=== PATIENT | male | born 1995 | race African-American/Black ===

== ENCOUNTER 2017-03-22 19:07 | Emergency (ER) | payer OTHER ==
[~2017-03-22] VITALS: Ht 185.4 cm; Wt 81.2 kg
--- NOTE | ~2017-03-22 | CR142 ---
[facility] A Service of [facility] & [facility] RADIOLOGY TEXT RESULTS PATIENT: STEPHANIE LOZANO LOCATION: [facility]FT[facility] : [birth year] UNIT #: [id number] AGE: [address]: Annelise Delgado APRN SEX: M ORDER DR: [id number] [facility] [address] [place], [place] [address] [id number] E MR#: [id number] Acc #: [id number] NAME: STEPHANIE LOZANO : 1995 SEX: M STUDY DATE/TIME: 03/22/2017 19:40 UNIT: [facility] ROOM: STUDY DESCRIPTION: CR Hand Min 3 Views Rt Attending Physician: Annelise Delgado A.P.R.N. Ordering Physician: Annelise Delgado A.P.R.N. Primary Care Physician: Primary Care Physician No MEDICAL IMAGING REPORT This report is preliminary unless electronic signature is present EXAM Right hand 3 views, 03/22/2017 HISTORY Right hand pain for 2 months after punching a car window. FINDINGS AP, lateral, and oblique projections of the hand show good mineralization with normal carpal, metacarpal, and phalangeal anatomy without indication of fracture, dislocation, or soft tissue radiopaque foreign body. IMPRESSION Normal hand. Dictated by... Arturo Nielson M.D. THIS IS AN ELECTRONICALLY VERIFIED REPORT Arturo Nielson M.D. at 03/23/2017 2:14 PM KRT/nargis TD: 03/23/2017 00:48 JOB #: [id number] MEDICAL IMAGING REPORT Page 1 of 1 COPY
--- NOTE | ~2017-03-22 | CR172 ---
[facility] A Service of [facility] & [facility] RADIOLOGY TEXT RESULTS PATIENT: STEPHANIE LOZANO LOCATION: [facility]FT[facility] : [birth year] UNIT #: [id number] AGE: [address]: Annelise Delgado APRN SEX: M ORDER DR: [id number] [facility] [address] [place], [place] [address] [id number] E MR#: [id number] Acc #: [id number] NAME: STEPHANIE LOZANO : 1995 SEX: M STUDY DATE/TIME: 03/22/2017 19:44 UNIT: [facility] ROOM: STUDY DESCRIPTION: CR Knee 3 Views Lt Attending Physician: Annelise Delgado A.P.R.N. Ordering Physician: Annelise Delgado A.P.R.N. Primary Care Physician: Primary Care Physician No MEDICAL IMAGING REPORT This report is preliminary unless electronic signature is present EXAM Left knee 3 views, 03/22/2017 HISTORY Left knee pain anteriorly for 2 months. FINDINGS 3 views of the left knee demonstrate no acute fracture. There are well-corticated calcifications along the inferior aspect of the patella best seen on the lateral view which could reflect old fracture. The joint space is normally maintained. There is no joint effusion. IMPRESSION 3 well-corticated calcifications along the inferior aspect of the patella best seen on the lateral view. Findings are nonspecific but could reflect old ununited fractures. Clinical correlation recommended. No acute abnormality. Dictated by... Arturo Nielson M.D. THIS IS AN ELECTRONICALLY VERIFIED REPORT Arturo Nielson M.D. at 03/23/2017 2:14 PM YOAN/ender TD: 03/23/2017 00:51 JOB #: [id number] MEDICAL IMAGING REPORT Page 1 of 1 COPY
== END 2017-03-22 20:35 | disposition home or self-care (01) ==
LOC: CFTX 19:07 → CED 19:07 → CFTX 19:37
DX: S83.512A Sprain of anterior cruciate ligament of left knee, initial encounter (principal); S60.221A Contusion of right hand, initial encounter; F17.200 Nicotine dependence, unspecified, uncomplicated; X50.1XXA Overexertion from prolonged static or awkward postures, initial encounter; Y93.67 Activity, basketball
CPT/HCPCS: 29125; 29505; 73130; 73562; 99283